=== PATIENT | female | born 1995 | race African-American/Black ===

== ENCOUNTER 2022-03-23 15:24 | Emergency (ER) | payer BC ==
[~2022-03-23] VITALS: Ht 165.1 cm; Wt 84.9 kg
[2022-03-23] MEDS ORDERED: XARE20TA PO (15:36)
[2022-03-23] MEDS ORDERED: GNP250TA9 PO (15:36)
[2022-03-23] MEDS ORDERED: ANOR1AER PO (15:36)
[2022-03-23] MEDS ORDERED: L-LY500T14 PO (15:36)
[2022-03-23] MEDS ORDERED: LOPE-39 PO (15:36)
[2022-03-23] MEDS ORDERED: FAMO40TA3 PO (15:36)
[2022-03-23] MEDS ORDERED: METO1TAB32 PO (15:36)
[2022-03-23] MEDS ORDERED: ALBU2.5V10 INH (15:36)
[2022-03-23] MEDS ORDERED: HYDR-3363 PO (15:36)
[2022-03-23] MEDS ORDERED: FLON1SPR NARES (15:36)
[2022-03-23] MEDS ORDERED: OLOP5DRO16 OD (15:36)
[2022-03-23] MEDS ORDERED: SING5CHW23 PO (15:36)
[2022-03-23] MEDS ORDERED: ZYRTTAB8 PO (15:36)
[2022-03-23] MEDS ORDERED: OMEP40CA4 PO (15:36)
[2022-03-23 17:39] LABS: BASO % 0.6 % (0.0-1.0); EOS # 0.1 10^3/uL (0.0-0.5); EOS % 0.9 % (0.0-3.0); HEMATOCRIT 38.8 % (36.0-47.0); LYMPH # 1.5 10^3/uL (1.5-5.0); LYMPH % 22.9 % (24.0-44.0); MEAN CORPUSCULAR HGB CONC 33.5 g/dl (32.0-36.5); MEAN CORPUSCULAR VOLUME 86.4 fl (80.0-96.0); MONO # 0.4 10^3/uL (0.0-0.8); MONO % 6.2 % (2.0-8.0); NEUTROPHILS # 4.6 10^3/uL (1.5-8.5); NEUTROPHILS % 69.1 % (36.0-66.0); PLATELET COUNT, AUTOMATED 324 10^3/uL (150-450); RED BLOOD COUNT 4.49 10^6/uL (4.00-5.40); WHITE BLOOD COUNT 6.7 10^3/uL (4.0-10.0)
[2022-03-23 17:40] LABS: ABG BASE EXCESS -0.2 (-2.0-2.0); ABG HCO3 23.5 MEQ/L (22.0-26.0); ABG PARTIAL PRESSURE CO2 35.7 mmHg (35.0-45.0); ABG PARTIAL PRESSURE O2 128.3 mmHg (75.0-100.0); ABG STANDARD HCO3 24.4 MEQ/L (22.0-26.0); ABG TOTAL CO2 24.6 MEQ/L (22.0-29.0); ABG pH (ARTERIAL) 7.437 UNITS (7.350-7.450)
[2022-03-23] MEDS ORDERED: ISOVUE-370 76% 100ML VIAL As Ordered ONE (18:47)
[2022-03-23 20:43] VITALS: BP 121/64
== END 2022-03-23 20:51 | disposition home or self-care (01) ==
LOC: M ED 15:24
DX: R06.00 Dyspnea, unspecified (principal); R07.89 Other chest pain; G93.5 Compression of brain; R00.0 Tachycardia, unspecified; Z86.16 Personal history of COVID-19; Z86.711 Personal history of pulmonary embolism; Z79.899 Other long term (current) drug therapy; Z79.01 Long term (current) use of anticoagulants
CPT/HCPCS: 36415; 36600; 71275; 80047; 82803; 84702; 85025; 93005; 99284; Q9967

== ENCOUNTER → 2022-03-27 | Outpatient (CLI) | payer BC ==
[~2022-03-27] MED LIST: ALBU2.5V10 INH; ANOR1AER PO; FAMO40TA3 PO; FLON1SPR NARES; GNP250TA9 PO; HYDR-3363 PO; ISOVUE-370 76% 100ML VIAL As Ordered ONE; L-LY500T14 PO; LOPE-39 PO; METO1TAB32 PO; OLOP5DRO16 OD; OMEP40CA4 PO; SING5CHW23 PO; XARE20TA PO; ZYRTTAB8 PO
== END ==
LOC: M RAD 14:50
PROVIDERS: ATTEND Surgery
DX: I26.99 Other pulmonary embolism without acute cor pulmonale (principal); R10.84 Generalized abdominal pain
CPT/HCPCS: 71275; 74174; Q9967

== ENCOUNTER → 2022-03-29 | Outpatient (CLI) | payer BC ==
[~2022-03-29] MED LIST changes: -ISOVUE-370 76% 100ML VIAL As Ordered ONE
[2022-03-29 21:03] LABS: ALBUMIN 3.8 GM/DL (3.2-5.2); ALT/SGPT 30 U/L (12-78); AMYLASE 45 U/L (25-115); BILIRUBIN,TOTAL 0.3 MG/DL (0.2-1.0); BLOOD UREA NITROGEN 14 MG/DL (7-18); CALCIUM LEVEL 9.7 MG/DL (8.5-10.1); CARBON DIOXIDE LEVEL 24 MEQ/L (21-32); CHLORIDE LEVEL 109 MEQ/L (98-107); CREATININE FOR GFR 0.94 MG/DL (0.55-1.30); GLOMERULAR FILTRATION RATE > 60.0 (>60); GLUCOSE, FASTING 96 MG/DL (70-100); LIPASE 160 U/L (73-393); POTASSIUM SERUM 4.1 MEQ/L (3.5-5.1); SODIUM LEVEL 138 MEQ/L (136-145)
== END ==
LOC: M WUC 15:15
PROVIDERS: ATTEND Internal Medicine
DX: R10.9 Unspecified abdominal pain (principal)

== ENCOUNTER 2022-04-28 18:21 | Emergency (ER) | payer BC ==
[~2022-04-28] VITALS: Ht 165.1 cm; Wt 90.9 kg
[2022-04-28 19:58] LABS: BASO % 0.6 % (0.0-1.0); EOS # 0.1 10^3/uL (0.0-0.5); EOS % 1.4 % (0.0-3.0); HEMATOCRIT 35.9 % (36.0-47.0); HEMOGLOBIN 12.1 g/dl (12.0-15.5); LYMPH % 27.6 % (24.0-44.0); MEAN CORPUSCULAR HEMOGLOBIN 28.8 pg (27.0-33.0); MEAN CORPUSCULAR HGB CONC 33.7 g/dl (32.0-36.5); MEAN CORPUSCULAR VOLUME 85.5 fl (80.0-96.0); MONO # 0.6 10^3/uL (0.0-0.8); MONO % 8.1 % (2.0-8.0); NEUTROPHILS # 4.4 10^3/uL (1.5-8.5); PLATELET COUNT, AUTOMATED 315 10^3/uL (150-450); WHITE BLOOD COUNT 7.1 10^3/uL (4.0-10.0)
[2022-04-28 20:10] LABS: INR 0.96; PROTHROMBIN TIME 13.2 SECONDS (12.7-14.5)
[2022-04-28] MEDS ORDERED: NS 1,000 ML IV ONE (20:25)
[2022-04-28 20:26] LABS: HCG, SERUM QUALITATIVE NEGATIVE (NEGATIVE)
[2022-04-28] MEDS ORDERED: ISOVUE-370 76% 100ML VIAL As Ordered ONE (20:29)
[2022-04-28 20:32] LABS: D-DIMER QUANT 1360.75 ng/ml (<500)
[2022-04-28 20:35] LABS: ALBUMIN 3.5 GM/DL (3.2-5.2); ALT/SGPT 43 U/L (12-78); BILIRUBIN,DIRECT 0.2 MG/DL (0.0-0.2); BILIRUBIN,TOTAL 0.3 MG/DL (0.2-1.0); BLOOD UREA NITROGEN 11 MG/DL (7-18); CARBON DIOXIDE LEVEL 23 MEQ/L (21-32); CHLORIDE LEVEL 108 MEQ/L (98-107); CREATININE FOR GFR 0.94 MG/DL (0.55-1.30); GLOMERULAR FILTRATION RATE > 60.0 (>60); GLUCOSE, FASTING 95 MG/DL (70-100); LIPASE 153 U/L (73-393); POTASSIUM SERUM 4.1 MEQ/L (3.5-5.1); SODIUM LEVEL 137 MEQ/L (136-145); TOTAL PROTEIN 6.8 GM/DL (6.4-8.2)
[2022-04-28] MEDS: GASTROGRAFIN SOLUTION 30ML PO SCH ×2 (21:15→21:29)
[2022-04-28 21:28] LABS: RSV AMPLIFICATION NEGATIVE (NEGATIVE)
[2022-04-28] MEDS ORDERED: NORCO 5/325MG TABLET (HOME DOSE PACK) PO ONE (23:40)
[2022-04-28 23:59] VITALS: BP 114/69
== END 2022-04-29 | disposition home or self-care (01) ==
LOC: M ED 18:21
DX: K56.41 Fecal impaction (principal); N83.292 Other ovarian cyst, left side; I10 Essential (primary) hypertension; E78.5 Hyperlipidemia, unspecified; Z93.2 Ileostomy status
CPT/HCPCS: 71275; 74177; 80048; 80076; 83690; 84703; 85025; 85379; 85610; 87631; 99284; Q9963; Q9967